=== PATIENT | female | born 1975 | race Caucasian/White ===

== ENCOUNTER 2017-12-30 10:04 | Outpatient (RCR) | payer MEDICAID, SELFPAY ==
--- NOTE | 2017-12-30 13:23 | HP.PTEVAL ---
Patient's Visit Information CONRAD MCARTHUR is a 42 year old F referred to Physical Therapy by IRIS SANCHEZ with a diagnosis of LOW BACK PAIN. Date of Evaluation: 12/30/17 Physical Therapist: Pooja Chaparro - Visit Plan Frequency: 2-3x /Week Duration: 4-6 Weeks Plan: POSTURE CORRECTION/STRENGTHENING, INSTRUCTION IN APPROPRIATE BODY MECHANICS AND ACTIVITY MODIFICATIONS. DLS STARTING WITH A NEUTRAL SPINE PROGRESSING ROM TOLERATED. ELIZABETH LE ROM, STRETCHING AND STRENGTHENING. HEP INSTRUCTION. 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 I DON'T REALLY HAVE A WHOLE LOT OF HEAVY LIFTING EXCEPT TRASH AND FLIPPING MATTRESS'S. Disability: NO. Present symptoms: ELIZABETH LOW BACK PAIN. Present since: I DON'T KNOW. I JUST KNOW THEY DID A LUMBAR FUSION IN 2007. Pain Scale: WORST 9/10, LEAST 4/10. Currently: 4/10. Commenced as a result of: NO APPARENT REASON. Symptoms at onset: LOW BACK PAIN. Worse: WORKING AND MOVING AROUND, WALKING, PROLONGED SITTING, LIFTING, BENDING, LYING DOWN TO WATCH A MOVIE IN BED. STANDING. TWISTING. Better: HEAT PAD, PAIN PILLS. Disturbed sleep: YES. Previous history/Previous treatment: LUMBAR F[place] [address] LUCY ERICKSON. 3-4 TIMES HAS HAD PHYSICAL THERAPY - STAYED ABOUT THE SAME. HASN'T REALLY HURT OR HELPED. CHIROPRACTOR AT 6 OR 7 YEARS OLD. MAT'S IN LOW BACK - HELPED FOR A LITTLE BIT. LAST INJECTION WAS ABOUT A YEAR AGO. HAS TRIED AQUATIC THERAPY WITH TEMPORARY RELEIF - JUST STRETCHING. Coughing/sneezing/straining: POSITIVE FOR STRAINING. GAIT: NO AD'S. DISTANCE LIMITED. Difficulty initiating urinatin: NO. Accidents: NO. Unexplained weight loss: NO. Imaging: PATIENT THINKS SHE HAD EITHER AN X-RAY OR MRI OF HER LOW BACK ABOUT A YEAR AGO BUT SHE ISN'T SURE AND CAN'T REMEMBER WHAT THEY SAID. 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 Recent major surgery: CTR SEP 10 2017 LEFT. HAS ORDER FOR OT. OTHER: STATES SHE PULLED A MUSCLE IN HER UPPER BACK ON LEFT ABOUT TWO WEEKS AGO AND WENT TO THE ED. GOING TO HER FAMILY DOCTOR IN [place] TOMORROW BECAUSE IT STILL HURTS. - Objective Sitting Posture: POOR. Standing Posture: POOR. Lordosis: REDUCED. Lateral shift: NO. Relevant shift: N/A. Active Correction of posture: NE. Other Observations: INDEP TRANSFER SIT TO STAND WITHOUT UE ASSIST. Motor deficit: ELIZABETH LE'S 5/5 WITH MMT EXCEPT HIPS GRADED 4/5. Sensory deficit: ELIZABETH LE'S LIGHT TOUCH SENSATION INTACT AND SYMMETRICAL. ROM deficit: TIGHT ELIZABETH HS'S AND GASTROC SOLEUS COMPLEX'S. Reflexes: UNABLE TO ELICIT ELIZABETH LE DTR'S. Dural Signs: POSITIVE ELIZABETH LE'S. Lumbar mvmt loss: flex - MOD. ext - LIZY. R SG - LIZY. L SG - LIZY. PATIENT HAS C/O INCREASED PAIN WITH LUMBAR ROM TESTING ALL PLANES. Core strength: POOR. Palpation: TENDERNESS WITH PALPATION OF THE L45S1 REGION AND INCREASED MUSCLE TONE OF ELIZABETH PARASPINALS HOWEVER SHE IS NOT TENDER IN THE THORACIC SPINE OR INTO ELIZABETH BUTTOCK OR HIP REGIONS. - Goals Goal 1:: DECREASE C/O LBP Goal Time Frame: 4-6 Weeks Goal 2:: IMPROVE WORK, PERSONAL CARE, LIFTING, WALKING, SITTING, STANDING, SLEEP, SOCIAL LIFE, TRAVEL, HOMEMAKING AND RECREATIONAL FUNCTION Goal Time Frame: 4-6 Weeks Goal 3:: INSTRUCT IN PROPHYLAXIS Goal Time Frame: 4-6 Weeks - Rehabilitation Potential Rehabilitation Potential: Fair - Anticipated Interventions Patient/Client Instruction: Educate patient on: Condition, Plan of Care, Risk Factors, Benefits of Fitness Program For the Purpose of:: To improve self management Therapeutic Exercise to Include: Strength training, Body mechanics, Postural training, Flexibilty training, In an aquatic setting, Dynamic Lumbar Stabilization For the Purpose of:: To improve ability of physical actions for home/community/work/leisure Thank you for the opportunity to evaluate your patient. For Medicare and Medicare HMO plans, please review the plan of care and approve it. It will need to be FAXED BACK to us at [phone] for Medicare purposes. Please let me know if there are questions or concerns regarding this plan of care. Physician Signature: Date:
--- NOTE | 2018-02-26 14:19 | HP.PTDCSUM_ITS ---
HP - PT D/C Summary It has been my pleasure to treat CONRAD MCARTHUR under orders from IRIS BERNARD, for the diagnosis of LOW BACK PAIN for a total of 1 visit(s). Discharge Date: Please see the following information for a summary of their discharge status. - Goals Goal 1:: DECREASE C/O LBP Goal 2:: IMPROVE WORK, PERSONAL CARE, LIFTING, WALKING, SITTING, STANDING, SLEEP , SOCIAL LIFE, TRAVEL, HOMEMAKING AND RECREATIONAL FUNCTION Goal 3:: INSTRUCT IN PROPHYLAXIS - Plan Plan: POSTURE CORRECTION/STRENGTHENING, INSTRUCTION IN APPROPRIATE BODY MECHANICS AND ACTIVITY MODIFICATIONS. DLS STARTING WITH A NEUTRAL SPINE PROGRESSING ROM TOLERATED. ELIZABETH LE ROM, STRETCHING AND STRENGTHENING. HEP INSTRUCTION. - D/C Information If there are questions or concerns regarding this patient's physical therapy, please feel free to call me at [phone]. Thank you for the referral of this patient. Sincerely, Pooja Chaparro
== END 2017-12-30 19:00 | disposition home or self-care (01) ==
LOC: PT 10:04
DX: M54.5 Low back pain (principal)
CPT/HCPCS: 97162